=== PATIENT | male | born 1995 | race Hispanic/Latino ===

== ENCOUNTER 2016-10-02 13:27 | Emergency (ER) | payer OTHER ==
[~2016-10-02] VITALS: Ht 172.7 cm; Wt 104.3 kg
[2016-10-02 13:38] VITALS: BP 163/103
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
[2016-10-02] MEDS ORDERED: PEPCID20 M1 PO (14:11)
[2016-10-02] MEDS ORDERED: VISTARIL50 M1 PO (14:11)
[2016-10-02] MEDS ORDERED: IBUPROFEN800 M1 PO (14:11)
== END 2016-10-02 14:11 ==
LOC: ERH 13:27
DX: F41.9 Anxiety disorder, unspecified (principal); M79.1 Myalgia; R42 Dizziness and giddiness; V89.2XXA Person injured in unspecified motor-vehicle accident, traffic, initial encounter
CPT/HCPCS: J2405

== ENCOUNTER 2016-10-15 19:25 | Emergency (ER) | payer OTHER ==
[~2016-10-15] VITALS: Ht 172.7 cm; Wt 104.3 kg
[~2016-10-15 19:25] MED LIST: IBUPROFEN800 M1 PO; PEPCID20 M1 PO; VISTARIL50 M1 PO
[2016-10-15 19:41] VITALS: BP 153/82
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
[2016-10-15] MEDS ORDERED: PEPCID20 M1 PO (20:24)
[2016-10-15] MEDS ORDERED: ATIVAN0.5 M1 PO (20:24)
[2016-10-15] MEDS ORDERED: IBUPROFEN800 M1 PO (20:24)
== END 2016-10-15 20:48 ==
LOC: ERH 19:25
DX: F41.9 Anxiety disorder, unspecified (principal)

== ENCOUNTER 2016-10-20 16:27 | Emergency (ER) | payer OTHER ==
[~2016-10-20] VITALS: Ht 172.7 cm; Wt 104.3 kg
[~2016-10-20 16:27] MED LIST changes: +ATIVAN0.5 M1 PO
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
[2016-10-20 18:52] LABS: ABSOLUTE BASOPHIL COUNT 0 /CUMM (0.0-0.2); ABSOLUTE EOSINOPHIL COUNT 0.1 /CUMM (0.0-0.7); ABSOLUTE GRANULOCYTE CT 8.4 /CUMM (1.4-6.5); ABSOLUTE LYMPH COUNT 1.7 /CUMM (1.2-3.4); ABSOLUTE MONOCYTE COUNT 0.6 /CUMM (0.10-0.60); BASOPHIL % 0.1 % (0.0-2.0); EOSINOPHIL % 0.7 % (0-5); GRANULOCYTE % 77.6 % (42.2-75.2); HEMATOCRIT 48.3 % (42-52); MEAN CORPUSCULAR HGB 30.3 PG (27.0-31.0); MEAN CORPUSCULAR HGB CONC 33.5 G/DL (33.0-37.0); MEAN CORPUSCULAR VOLUME 90.5 FL (80.0-94.0); MEAN PLATELET VOLUME 11.9 FL (7.4-10.4); PLATELET COUNT 212 /CUMM (130-400); RBC DISTRIBUTION WIDTH 12.3 % (11.5-14.5); RED BLOOD CELL CT 5.34 /CUMM (4.70-6.10); WHITE BLOOD CELL COUNT 10.8 /CUMM (4.8-10.8)
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
[2016-10-20 21:22] VITALS: BP 131/70
--- NOTE | 2016-10-20 21:27 | ED PSYCH CRISIS CONSULTATION ---
Crisis Consult Basic Assessment Date of Consult: 10/20/16 Responsible Person/Accompanied By: brought in with and family Insurance Authorization: Insurance #1: Insurance name: [employer] Phone number: Policy number: [id number] Group number: Authorization number: ED Provider: Patient's ED Provider: SUZANNE ELDER MD Primary Care Physician: Patient's PCP: PATIENT HAS NO PRIMARY CARE DR PCP's Phone Number: Current Psychiatrist: None Chief Complaint: Headache Patient's Quote: "Im having anxiety, and I want it to go away". Present Illness: Pt is a 20 year old male, he arrives with his and 2 children 2 and 7. 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 Until he is in daycare the pt will be the only one working, he is adjusting to financial burden and stress. He states the anxiety/panic attacks are totally new for him and are taking him by surprise, "i feel like Im going to , like Im going to have a heart attack ". Pt was given ativan while here in the hospital, and reports at home he prefers not to be medicated, he stated he is more interested in finding out why he is feeling this way. He does not have a psychiatric history. He reports he stopped smoking cigarettes and drinking beer in the past 2 months and his tox screen is negative. Pt reports he feels overwhelmed by life stressors, denies si/hi/ah/vh. He is proud and wants to eb jammie to take care of his family, but at times it is very stressful. Pt is interested in speaking with a clinician to manage anxiety and relationship stressors. is on board with this plan as well. Pt came to [facility] for headache pain, and the consult came in when he began to describe panic attacks to the Dr. Patient's Address: [address] [place] [address] Other Phone Number: Who Do You Live With? Family Family/Informants Interviewed: , is here with him, and agrees with his presentation, she can only do so much to manage the stress for him, she wants to see him get help. Allergies - Coded Allergies: No Known Allergies (10/02/16) Current Medications - Scheduled Medications Famotidine (Pepcid) 20 MG TABLET 1 TAB PO BID gerd #14 TAB Prescribed by LEONA BOGGS on 10/02/16 Famotidine (Pepcid) 20 MG TABLET 1 TAB PO DAILY GERD #30 TAB Prescribed by LEONA BOGGS on 10/15/16 Ibuprofen 800 MG TABLET 1 TAB PO TID pain #30 TAB Prescribed by LEONA BOGGS on 10/02/16 Scheduled PRN Medications Hydroxyzine Pamoate (Vistaril) 50 MG CAPSULE 1 CAP PO TID PRN anxiety #30 CAP Prescribed by LEONA BOGGS on 10/02/16 Ibuprofen 800 MG TABLET 1 TAB PO TID PRN PAIN #30 TAB Prescribed by LEONA BOGGS on 10/15/16 Lorazepam (Ativan) 0.5 MG TABLET 1 TAB PO QPM PRN ANXIETY #10 TAB Prescribed by LEONA BOGGS on 10/15/16 Laboratory Results: Laboratory Tests 10/20/16 1836: Urine Opiates Screen < 100.00, Methadone Screen < 40, Barbiturate Screen < 60, Ur Phencyclidine Scrn < 6.00, Amphetamines Screen < 100, U Benzodiazepines Scrn < 85, Urine Cocaine Screen < 50, Urine Cannabis Screen < 5.00 10/20/16 1810: Anion Gap 14, Estimated GFR > 60, BUN/Creatinine Ratio 18.9, Glucose 97, Calcium 9.7, Total Bilirubin 0.8, AST 30, ALT 72, Alkaline Phosphatase 84, Total Protein 8.2, Albumin 4.8, Globulin 3.4, Albumin/Globulin Ratio 1.4, CBC w Diff NO MAN DIFF REQ, RBC 5.34, MCV 90.5, MCH 30.3, RDW 12.3, MPV 11.9 H, Gran % 77.6 H, Lymphocytes % 16.2 L, Monocytes % 5.4, Eosinophils % 0.7, Basophils % 0.1, Absolute Granulocytes 8.4 H, Absolute Lymphocytes 1.7, Absolute Monocytes 0.6, Absolute Eosinophils 0.1, Absolute Basophils 0, PUBS MCHC 33.5, Serum Alcohol < 10.0 Past History Past Surgical History Surgical History: 1 Psychosocial History Strengths/Capabilities: works, family, asking for help Physical Limitations (Interventions): none Psychiatric Treatment History Psych Treatment Psychiatric Treatment No Diagnosis by History: No formal DX Substance Use/Abuse History Drug Use/Abuse Substances Used/Abused No Substance Abuse Treatment Substance Abuse Treatment Past Substance Abuse [place] No Comments: pt reports he stopped drinking and smoking a few months ago. Current Mental Status Mental Status Orientation: Person, Place, Situation Affect: Anxious, Variable Speech: Hyper-verbal Neuro-vegetative: Appetite Increased, Energy Increased, Sleep Disturbance Appearance Appearance- Dress/Hygiene: well groomed, Behaviors Thought Process: Flight of Ideas Thought Content: WNL Memory: WNL Insight: WNL SI/HI Risk Assessment Past Suicidal Ideation/Attempts No Current Suicidal Ideation/Att No Past Homicidal Ideation/Att: No Current Homicidal Ideation/Attempts No Degree of Intent: None Risk Factors: age (under 24/over 65), high anxiety/distress, male Lethality Ratin (mild) PTSD Checklist PTSD Done? patient declined ED Management Sitter: No Restraints: No DSM5/PS Stressors/Medical Prob Diagnosis' (DSM 5, Stressors, Medical): F41.9 Unspecifed Anxiety D/O Current GAF: 40 Departure Disposition Psych Medical Clearance Date: 10/20/16 Medically Cleared at: 2014 Time Started: 2014 Time Ended: 2122 Psychiatrist Consulted: Samira Date Disposition Established: 10/20/16 Time Disposition Established: 2122 Plan for Disposition - Modality: Outpatient Facility: [facility] Follow-up Appt Date: 10/22/16 Follow-Up Appt Time: 1000 Contact: op at Telephone: [phone] Rationale for Disposition: Consulted with Dr. Hogan pt referred to outpatient, as he is interested in counseling and has anxiety atatcks new symtpmology. Denies si/hi/ah/vh. Referrals PATIENT HAS NO PRIMARY CARE DR (PCP/Family)
[2016-10-20] MEDS ORDERED: CYCLOBENZAPRINE10 M1 PO (21:51)
[2016-10-20] MEDS ORDERED: ZOFRAN ODT4 M1 SL (21:51)
[2016-10-20] MEDS ORDERED: IMITREX50 M1 PO (21:51)
== END 2016-10-20 22:14 ==
LOC: ERH 16:27
PROVIDERS: Emergency Medicine
DX: F41.1 Generalized anxiety disorder (principal); R51 Headache
CPT/HCPCS: 80307; 96374; 96375; G0463; G0480; J0131; J1885; J2765